=== PATIENT | female | born 1985 | race Caucasian/White ===

== ENCOUNTER 2017-06-22 15:31 | Emergency (ER) | payer MEDICAID ==
[2017-06-22 15:46] VITALS: BP 104/79; RESP 16; TEMP 98.2
[2017-06-22] MEDS ORDERED: DEXAMETHASONE 4 MG/ML VIAL IVP ONE (16:05)
[2017-06-22] MEDS ORDERED: DIAZEPAM 5 MG/ML 1 ML SYR IVP ONE (16:05)
[2017-06-22] MEDS ORDERED: KETAMINE 200 MG/20 ML VIAL IVP ONE (16:05)
[2017-06-22] MEDS ORDERED: KETOROLAC 15 MG/1 ML SDV IVP ONE (16:05)
--- NOTE | 2017-06-22 16:05 | EDPHY ---
H & P Stated Complaint: back pain - Personal History LMP (Females 10-55): Hysterectomy Current Tetanus/Diphtheria Vaccine: Unsure Current Tetanus Diphtheria and Acellular Pertussis (TDAP): Unsure - Medical/Surgical History Hx Asthma: No Hx Chronic Respiratory Disease: No Hx Diabetes: No Hx Cardiac Disease: No Hx Renal Disease: No Hx Cirrhosis: No Hx Alcoholism: No Hx HIV/AIDS: No Hx Splenectomy or Spleen Trauma: No Other PMH: bulging L4L5, Breana, hysterectomy, L ACL reconstruction, plantar fascitis release - Social History Smoking Status: Current every day smoker Time Seen by Provider: 06/22/17 16:03 HPI/ROS: CHIEF COMPLAINT: Acute on chronic back pain HISTORY OF PRESENT ILLNESS: 31-year-old female with a history of chronic low back pain, chronic right lower extremity radiculopathy, followed at [facility], arrives via private vehicle complaining of breakthrough low back pain. She was seen at [facility] in [facility] yesterday and notes relief of symptoms. This feels like her usual breakthrough pain. Unable to walk secondary to pain. No incontinence. No retention. No saddle anesthesia. History of MRI 1 month ago. History of Opiate dependence. She has no foot drop. Denies acute neurologic complaints. Patient was discharged from her pain management practice today. States that she had an appointment today and they called her let her know that she was no longer allowed to come to the office. REVIEW OF SYSTEMS: A ten point review of systems was performed and is negative with the exception of the items mentioned in the HPI PAST MEDICAL & SURGICAL HISTORY: Chronic low back pain with right lower extremity radiculopathy SOCIAL HISTORY: Daily cigarette smoker PHYSICAL EXAM (Prior to examination, patient consented to physical exam, hands were washed and my usual and customary physical exam procedures followed) 1) GENERAL: Well-developed, well-nourished, alert and oriented. Uncomfortable, crying, yelling 2) HEAD: Normocephalic, atraumatic 3) HEENT: Pupils equal, round, reactive to light bilaterally. Sclera anicteric. Nasopharynx, oropharynx, clear, no lesions. 4) NECK: Full range of motion, no meningeal signs. 5) LUNGS: Clear auscultation bilaterally, no wheezes, no rhonchi, no retractions. 6) HEART: Regular rate and rhythm, no murmur, no heave, no gallop. 7) ABDOMEN: No guarding, no rebound, no focal tenderness, negative McBurney's, negative Avila's, negative Rovsing's, negative peritoneal sign, 8) MUSCULOSKELETAL: Moving all extremities, no focal areas of tenderness, no obvious trauma. No peripheral edema or discoloration. 9) BACK: tender to palpation paraspinous muscle. No CVA tenderness, no midline vertebral tenderness, no fluctuance, no step-off, no obvious trauma, no visual or palpable abnormality. Patella, Achilles reflexes intact to bilateral strength 5/5 10) SKIN: No rash, no petechiae. 11) NEURO: Awake, alert, and oriented to person, place and time. Answers questions appropriately. There were no obvious focal neurologic abnormalities. No cerebellar dysfunction. Normal steady gait. Upper and lower extremities bilaterally with strength 5 / 5, reflexes 2+.. DIFFERENTIAL DIAGNOSIS: In no particular order, including but not limited to, fracture, sprain/strain, cauda equina, spinal infectious etiology. (Marin Benoit Eduarda) Constitutional: Initial Vital Signs Temperature (C) 36.8 C 06/22/17 15:43 Heart Rate 84 06/22/17 15:43 Respiratory Rate 16 06/22/17 15:43 Blood Pressure 104/79 06/22/17 15:43 O2 Sat (%) 93 06/22/17 15:43 O2 Delivery Mode Room Air Allergies/Adverse Reactions: No Known Allergies Allergy (Unverified 06/22/17 15:43) Home Medications: Medication Instructions Recorded Hydrocodone/APAP 5/325 [Brighton 1 tab PO Q6 PRN #15 tab 06/22/17 5/325 (RX)] methylPREDNISolone [Medrol Dose 4 mg PO DAILY #1 ea 06/22/17 Prosper] Medical Decision Making ED Course/Re-evaluation: 4:04 p.m.: Old medical records reviewed via [facility] indicating emergency department visit [facility] in [place] Yesterday. She appears very uncomfortable, crying, tender to palpation diffusely in the lumbar region, she has an intact neurologic examination. She has had MRIs recent is 1 month ago. At this time I do not think that emergent MRI is indicated. Will administer analgesia and re-evaluated. 5:00 p.m.: Re-evaluation, sleeping, easily woken. States that her pain is controlled after IV ketamine, Toradol 5:29 p.m.: Patient requesting further analgesia. Will order IV Haldol 7:00 p.m.: Re-evaluation, sleeping. Plan will be discharge. She requests referral to Dr. Malcolm Robles.Lower index of suspicion for cauda equina, epidural abscess, epidural hematoma, lumbar myositis, diskitis, as the patient is neurologically intact in the lower extremities, has patella and Achilles reflexes intact and equal bilaterally, has no neurologic deficits, no incontinence, no retention, no midline pain, no fluctuance, afebrile, no flulike symptoms. Pain may be secondary to muscular strain, may be secondary to discogenic etiology. At this point I do not identify definitive indication for emergent MRI, however patient may necessitate this on an outpatient basis. (Marin Benoit) I did not see this patient while she was in the emergency department. However her care with rest with the PA while the patient was in the department. I agree with treatment plan and management (Kannan Quinones) - Data Points Medications Given: Discontinued Medications Dexamethasone (Decadron Injection) 8 mg IVP EDNOW ONE Stop: 06/22/17 16:06 Last Admin: 06/22/17 16:34 Dose: 8 mg Diazepam (Valium) 5 mg IVP EDNOW ONE Stop: 06/22/17 16:06 Last Admin: 06/22/17 16:34 Dose: 5 mg Haloperidol Lactate (Haldol Injection) 2.5 mg IVP EDNOW ONE Stop: 06/22/17 17:30 Last Admin: 06/22/17 17:50 Dose: 2.5 mg Ketamine HCl (Ketamine) 13.6 mg 0.2 mg/kg (13.6 mg) IVP EDNOW ONE Stop: 06/22/17 16:06 Last Admin: 06/22/17 16:35 Dose: 13.6 mg Ketorolac Tromethamine (Toradol) 15 mg IVP EDNOW ONE Stop: 06/22/17 16:06 Last Admin: 06/22/17 16:34 Dose: 15 mg Departure - Departure Disposition: Home, Routine, Self-Care Clinical Impression: Chronic low back pain Condition: Good Instructions: Acute Low Back Pain (ED) Additional Instructions: Seek medical attention if you develop new or worsening pain, if you develop bladder or bowel dysfunction, numbness around your perineum, foot drop, or any other symptoms that concern you. Referrals: Johanna Robles MD [Medical Doctor] - 2-3 days, call for appt. Prescriptions: Hydrocodone/APAP 5/325 [Brighton 5/325 (RX)] 1 tab PO Q6 PRN #15 tab PRN Reason: Pain, Severe methylPREDNISolone [Medrol Dose Prosper] 4 mg PO DAILY #1 ea
[2017-06-22] MEDS ORDERED: HALOPERIDOL LACT 5 MG/ML INJ IVP ONE (17:29)
[2017-06-22 17:52] VITALS: PULSE 83; O2SAT 95
== END 2017-06-22 19:15 | disposition home or self-care (01) ==
DX: M54.5 Low back pain (principal); G89.29 Other chronic pain; F17.200 Nicotine dependence, unspecified, uncomplicated
CPT/HCPCS: 96374; J1100; J1630; J1885; J3360

== ENCOUNTER 2017-06-25 14:28 | Emergency (ER) | payer MEDICAID ==
[2017-06-25 14:34] VITALS: BP 115/77; PULSE 92; RESP 18; TEMP 97.5; O2SAT 97
--- NOTE | 2017-06-25 15:02 | EDPHY ---
H & P Stated Complaint: Out of Elliott;appt w/neurosurg on Thursday Source: Patient Exam Limitations: No limitations - Personal History LMP (Females 10-55): Hysterectomy Current Tetanus Diphtheria and Acellular Pertussis (TDAP): Yes - Medical/Surgical History Hx Asthma: No Hx Chronic Respiratory Disease: No Hx Diabetes: No Hx Cardiac Disease: No Hx Renal Disease: No Hx Cirrhosis: No Hx Alcoholism: No Hx HIV/AIDS: No Hx Splenectomy or Spleen Trauma: No Other PMH: bulging L4L5, Breana, hysterectomy, L ACL reconstruction, plantar fascitis release, chronic back pain - Social History Smoking Status: Current every day smoker Time Seen by Provider: 06/25/17 15:01 HPI/ROS: HPI: This is a 31-year-old female who presents with Chief Complaint: Out of Elliott;appt w/neurosurgery on Thursday Location: Lower back Quality: Pain Duration: Days Signs and Symptoms: No bleeding, no radiation, no numbness, no weakness, no tingling, no incontinence, + decreased range of motion, no swelling, + pain Timing: Acute on chronic Severity: 11/13 Context: Patient has a history of chronic back pain, recently discharged from Pain Management in [place] on 06/22/2017, presents for the 2nd time to the emergency room in the last week with complaints of lower back pain; severe in intensity; nonradiating. Reports that pain is worsened with extension and changing positions. The pain is typical for her previous bouts. The patient provided lumbar sacral x-rays from [place] in April 2017 that showed mild degenerative changes as well as moderate stool burden that I reviewed. I also reviewed her MRI of the lumbar spine showing L4-L5 and L5-S1 stenosis and degenerative changes. Seen in this emergency room on 06/22/2017; given 15 tabs of Percocet and a Medrol Dosepak. Patient 1st reported to the triage nurse she was out of her Percocet but when I questioned her about the states that she has Percocet left but it is not working. She reports that she is taking her Medrol Dosepak. Also requests refill over Lidoderm patch and has never tried gabapentin or muscle relaxers. Denies LOC/head injury/neck pain/dizziness/nausea /vomiting/amnesia. Friend drove her to the emergency room. Denies any urinary symptoms/neurological symptoms. Advises that she has a neurosurgical appointment on Thursday. Modifying Factors: See above Comment: ROS: see HPI Constitutional: No fever, no chills, no weight loss Eyes: No blurred vision Respiratory: No shortness of breath, no cough Cardiovascular: No chest pain Gastrointestinal: No nausea, no vomiting no diarrhea Genitourinary: No dysuria Extremities: No myalgias Neurologic: No weakness, no numbness Skin: No rashes Hematologic: No bruising, no bleeding MEDICAL/SURGICAL/SOCIAL HISTORY: Medical/Surgical history: bulging L4L5, Breana cystectomy, hysterectomy, left ACL reconstruction, plantar fascitis release, chronic back pain Social history: Employed. CONSTITUTIONAL: Anxious extremely well-appearing adult white female, friend at bedside, awake and alert, no obvious distress HEENT: Atraumatic and normocephalic. NECK: supple, no midline tenderness, flexion 45 degrees, extension 45 degrees, right and left lateral flexion 45 degrees. No meningismus. Cardiovascular: Normal S1/S2, mild tachycardia, regular rhythm, without murmur rub or gallop. PULMONARY/CHEST: Symmetrical and nontender. no crepitus. Clear to auscultation bilaterally. Good air movement. No accessory muscle usage. ABDOMEN: Soft, nondistended, nontender, no ecchymosis. PELVIC: no pain with rocking; bilateral hips flexion 125 degrees, extension 30 degrees, with no pain internal rotation and no pain external rotation. BACK: No midline tenderness, no paraspinous spasm, deep tendon reflexes 2/2, no pain with straight leg raise, no foot drop; good range of motion of flexion, extension, bilateral lateral rotation. EXTREMITIES: 2/2 pulses, strength 5/5, DIP/PIP/MCP flexion/extension intact with good light touch sensation. no deformities, no clubbing, no cyanosis or edema. NEUROLOGICAL: no focal neuro deficits. GCS 15. Light touch sensation intact. SKIN: Warm and dry, no erythema. no rash. Good capillary refill. (Deanne Bella) Constitutional: Initial Vital Signs Temperature (C) 36.4 C 06/25/17 14:30 Heart Rate 92 06/25/17 14:30 Respiratory Rate 18 06/25/17 14:30 Blood Pressure 115/77 06/25/17 14:30 O2 Sat (%) 97 06/25/17 14:30 O2 Delivery Mode Room Air Allergies/Adverse Reactions: No Known Allergies Allergy (Verified 06/25/17 14:29) Home Medications: Medication Instructions Recorded Hydrocodone/APAP 5/325 [Elliott 1 tab PO Q6 PRN #15 tab 06/22/17 5/325 (RX)] methylPREDNISolone [Medrol Dose 4 mg PO DAILY #1 ea 06/22/17 Prosper] Cyclobenzaprine [Flexeril 10 MG 10 mg PO TID PRN #12 tab 06/25/17 (*)] Gabapentin [Neurontin 300 MG (*)] 300 mg PO HS #10 cap 06/25/17 Lidocaine [Lidoderm] 1 each TP Q12 #10 adh..patch 06/25/17 Medical Decision Making ED Course/Re-evaluation: Chart review shows that GARCIA reviewed on 06/22 indicating emergency room visit at [facility] on 06/21/2017. No signs of neurovascular compromise/tenting of skin/compartment syndrome/ extremities and joints examined above and below area of concern and are neurovascularly intact/cauda equina syndrome/epidural hematoma/myositis/ diskitis. Patient was given ketamine, gabapentin and Lidoderm patch I advised to the patient that this ER will not refill chronic opiate pain medications and that according to records she should still have Percocet medications left over based on the dosage schedule by provider. I do not believe that an MRI emergently is needed at this time. 1550: Notified by nursing that patient became upset as she was not going to receive IV opiate medications. She bent over picked up her things and stormed out of the emergency room without any ambulatory neurological deficits noted. Patient did not receive any medications ordered. This patient was seen under the supervision of my secondary supervising physician. I evaluated care for this patient independently. Discussed this patient with Dr. Aviles who did not see the patient. (Deanne Bella) Differential Diagnosis: Back pain including but not limited to muscular pain, herniated disc, spine fracture, intra-abdominal causes and urinary tract infection. (Deanne Bella) Other Provider: The patient was evaluated and managed by the Physician Outpatient Program Coordinator. My co- signature indicates that I have reviewed this chart and I agree with the findings and plan of care as documented. I am the secondary supervising physician. (Tangela Aviles) Departure - Departure Disposition: Home, Routine, Self-Care Clinical Impression: Acute exacerbation of chronic low back pain Condition: Good Instructions: Narcotic Abuse (ED), Chronic Back Pain (ED) Additional Instructions: Return to the ER immediately if you have new or worsening back pain, fevers/ chills, flu like symptoms, incontinence or inability to urinate or defecate, weakness, paralysis, or any other symptom that concerns you. Referrals: Johanna Robles MD [Medical Doctor] - As per Instructions Prescriptions: Cyclobenzaprine [Flexeril 10 MG (*)] 10 mg PO TID PRN #12 tab PRN Reason: Spasms Gabapentin [Neurontin 300 MG (*)] 300 mg PO HS #10 cap Lidocaine [Lidoderm] 1 each TP Q12 #10 adh..patch
[2017-06-25] MEDS ORDERED: KETAMINE 200 MG/20 ML VIAL IVP ONE (15:14)
[2017-06-25] MEDS ORDERED: GABAPENTIN 300 MG CAP PO ONE (15:14)
[2017-06-25] MEDS ORDERED: LIDOCAINE 4%/MENTHOL 1% PATCH TD ONE (15:14)
[2017-06-25] MEDS ORDERED: PATCH REMOVAL 1 EA PATCH TD SCH (21:00)
== END 2017-06-25 15:57 | disposition home or self-care (01) ==
DX: M54.5 Low back pain (principal); G89.29 Other chronic pain; F17.200 Nicotine dependence, unspecified, uncomplicated